=== PATIENT | male | born 1950 | race Two or more races ===

== ENCOUNTER 2019-10-01 10:08 | Observation (INO) | payer MEDICARE, OTHER ==
[2019-10-01] MEDS ORDERED: NORMAL SALINE 1000 ML 1,000 ML IV ONE ×2 (10:33→12:50)
--- NOTE | 2019-10-01 10:35 | ER Document Report ---
ED Medical Screen (RME) - General Chief Complaint: Abdominal Pain Stated Complaint: ABDOMINAL PAIN Time Seen by Provider: 10/01/19 10:29 - HPI Notes: 10/01/19 10:34 68-year-old male with a history of hypertension and arthritis presents to the ER via EMS for complaints of pain to his right lower quadrant with started at 1:00 in the morning, states pain comes and goes. Reports pain is sharp and shooting. Patient states that he was given pain medication in EMS on the way to the emergency room. Denies any nausea vomiting diarrhea, fever chills, chest pain or shortness of breath. Reports now he only has pain with palpation to his right lower quadrant. Denies any abdominal surgeries. Denies any melena. Denies any trauma I have greeted and performed a rapid initial assessment of this patient. A comprehensive ED assessment and evaluation of the patient, analysis of test results and completion of the medical decision making process will be conducted by additional ED providers. PHYSICAL EXAMINATION: GENERAL: Well-appearing, well-nourished and in no acute distress. CV: s1, s2 regular LUNGS: No respiratory distress abd: RLQ abd pain on palpation, no cva tenderness appreciated bilaterally - Related Data Allergies/Adverse Reactions: No Known Allergies Allergy (Verified 10/01/19 10:31) Physical Exam - Vital signs Vitals: Temp Pulse Resp BP Pulse Ox 98.0 F 91 16 108/87 H 95 10/01/19 10:13 10/01/19 10:13 10/01/19 10:13 10/01/19 10:13 10/01/19 10:13 Course - Vital Signs Vital signs: Temp Pulse Resp BP Pulse Ox 98.0 F 91 16 108/87 H 95 10/01/19 10:13 10/01/19 10:13 10/01/19 10:13 10/01/19 10:13 10/01/19 10:13
[2019-10-01 11:11] LABS: ABSOLUTE BASOPHILS # (AUTO) 0.1 10^3/uL (0.0-0.2); ABSOLUTE LYMPHOCYTES (AUTO) 1.1 10^3/uL (0.5-4.7); ABSOLUTE MONOCYTES (AUTO) 1.6 10^3/uL (0.1-1.4); ABSOLUTE NEUT (AUTO) 16.5 10^3/uL (1.7-8.2); BASOPHILS % (AUTO) 0.4 % (0-2); HEMATOCRIT 42.9 % (37.9-51.0); HEMOGLOBIN 14.8 g/dL (13.5-17.0); LYMPHOCYTES % (AUTO) 5.7 % (13-45); MEAN CORPUSCULAR HEMOGLOBIN 32.4 pg (27.0-33.4); MEAN CORPUSCULAR HGB CONC 34.5 g/dL (32.0-36.0); MEAN CORPUSCULAR VOLUME 94 fl (80-97); MONOCYTES % (AUTO) 8.2 % (3-13); PLATELET COUNT 296 10^3/uL (150-450); RED BLOOD COUNT 4.57 10^6/uL (4.35-5.55); RED CELL DISTRIBUTION WIDTH 13.7 % (11.5-14.0); SEGMENTED NEUTROPHILS % (AUTO) 85.7 % (42-78); TOTAL CELLS COUNTED % (AUTO) 100 %; WHITE BLOOD COUNT 19.3 10^3/uL (4.0-10.5)
[2019-10-01 11:25] LABS: APPEARANCE,URINE CLEAR; BILIRUBIN,URINE NEGATIVE (NEGATIVE); COLOR,URINE YELLOW; GLUCOSE, URINE NEGATIVE (NEGATIVE); KETONES,URINE NEGATIVE (NEGATIVE); LEUKOCYTE ESTERASE,URINE TRACE (NEGATIVE); NITRITE,URINE NEGATIVE (NEGATIVE); PROTEIN,URINE 30 mg/dL (NEGATIVE); URINE SPECIFIC GRAVITY 1.018; UROBILINOGEN,URINE NEGATIVE mg/dL (<2.0)
[2019-10-01 11:29] LABS: ALBUMIN 4.8 g/dL (3.5-5.0); ALKALINE PHOSPHATASE 57 U/L (38-126); ANION GAP 10 (5-19); ASPARTATE AMINO TRANSFERASE 22 U/L (17-59); BILIRUBIN,DIRECT 0.3 mg/dL (0.0-0.4); BILIRUBIN,TOTAL 0.6 mg/dL (0.2-1.3); BLOOD UREA NITROGEN 14 mg/dL (7-20); CALCIUM 9.6 mg/dL (8.4-10.2); CARBON DIOXIDE 27 mmol/L (22-30); CHLORIDE 101 mmol/L (98-107); GLUCOSE 134 mg/dL (75-110); POTASSIUM 4.3 mmol/L (3.6-5.0); TOTAL PROTEIN 8.2 g/dL (6.3-8.2)
--- NOTE | 2019-10-01 12:18 | ER Document Report ---
ED GI/ - General Chief Complaint: Abdominal Pain Stated Complaint: ABDOMINAL PAIN Time Seen by Provider: 10/01/19 10:29 Notes: CHIEF COMPLAINT: Right lower quadrant abdominal pain HPI: 68-year-old reasonably healthy male presenting for right lower quadrant abdominal pain that he woke up with this morning. Has not had nausea vomiting or fever. States the pain was fairly sharp, no penile or testicular pain. No dysuria or hematuria. Denies any surgical abdominal history ROS: See HPI - all other systems were reviewed and are otherwise negative Constitutional: no fever Eyes: no drainage, no blurred vision ENT: no runny nose, no sore throat Cardiovascular: no chest pain Resp: no SOB, no cough GI: no vomiting, no diarrhea, + abdominal pain : no dysuria Integumentary: no rash Allergy: no hives Musculoskeletal: no extremity pain or swelling Neurological: no numbness/tingling, no weakness MEDICATIONS: I agree with the patient medications as charted by the RN. ALLERGIES: I agree with the allergies as charted by the RN. PAST MEDICAL HISTORY/PAST SURGICAL HISTORY: Reviewed and agree as charted by RN. SOCIAL HISTORY: Reviewed and agree as charted by RN. FAMILY HISTORY: No significant familial comorbid conditions directly related to patient complaint EXAM: Reviewed vital signs as charted by RN. CONSTITUTIONAL: Alert and oriented and responds appropriately to questions. Well-appearing; well-nourished HEAD: Normocephalic; atraumatic EYES: PERRL; Conjunctivae clear, sclerae non-icteric ENT: normal nose; no rhinorrhea; moist mucous membranes; pharynx without lesions noted, no uvula edema or deviation, no tonsillar hypertrophy, phonation normal NECK: Supple without meningismus; non-tender; no cervical lymphadenopathy, no masses CARD: RRR; no murmurs, no clicks, no rubs, no gallops; symmetric distal pulses RESP: Normal chest excursion without splinting or tachypnea; breath sounds clear and equal bilaterally; no wheezes, no rhonchi, no rales, pulse oximetry 99% on room air not hypoxic ABD/GI: Normal bowel sounds; non-distended; soft, mild tenderness in the right lower quadrant on palpation, no rebound, no guarding; no palpable organomegaly or masses. BACK: The back appears normal and is non-tender to palpation, there is no CVA tenderness EXT: Normal ROM in all joints; non-tender to palpation; no cyanosis, no effusions, no edema SKIN: Normal color for age and race; warm; dry; good turgor; no acute lesions noted NEURO: Moves all extremities equally; Motor and sensory function intact PSYCH: The patient's mood and manner are appropriate. Grooming and personal hygiene are appropriate. MDM: 68-year-old male who woke up with right lower quadrant abdominal pain today. Differential would include kidney stone although he has no hematuria, appendicitis, diverticulitis, discussed with Dr. Mojica attending, patient shows a moderate leukocytosis of 19,000. Urine does not appear to show significant infection. Awaiting CT imaging, ordered via triage process - Related Data Allergies/Adverse Reactions: No Known Allergies Allergy (Verified 10/01/19 10:31) Home Medications: amlodipine, meloxicam Past Medical History - Social History Smoking Status: Never Smoker Frequency of alcohol use: None Drug Abuse: None Family History: Reviewed & Not Pertinent Physical Exam - Vital signs Vitals: Temp Pulse Resp BP Pulse Ox 98.0 F 91 16 108/87 H 95 10/01/19 10:13 10/01/19 10:13 10/01/19 10:13 10/01/19 10:13 10/01/19 10:13 Course - Re-evaluation Re-evalutation: 10/01/19 12:[address] Soni, Surgery. Case discussed, lab and CT imaging reviewed. Requests 2 g Rocephin IV, IV fluids, will admit - Vital Signs Vital signs: Temp Pulse Resp BP Pulse Ox 98.0 F 91 16 108/87 H 95 10/01/19 10:13 10/01/19 10:13 10/01/19 10:13 10/01/19 10:13 10/01/19 10:13 - Laboratory Result Diagrams: 10/01/19 10:50 10/01/19 10:50 Laboratory results interpreted by me: 10/01/19 10/01/19 10/01/19 10:50 10:50 10:50 WBC 19.3 H Lymph % (Auto) 5.7 L Absolute Neuts (auto) 16.5 H Absolute Monos (auto) 1.6 H Seg Neutrophils % 85.7 H Glucose 134 H Urine Protein 30 H Ur Leukocyte Esterase TRACE H Discharge - Discharge Clinical Impression: Acute appendicitis Qualifiers: Acute appendicitis type: with localized peritonitis Appendicitis gangrene presence: without gangrene Appendicitis perforation presence: without p erforation Appendicitis abscess presence: without abscess Qualified Code(s): K35.30 - Acute appendicitis with localized peritonitis, without perforation or gangrene Condition: Stable Disposition: ADMITTED INPATIENT Admitting Provider: Surgicalist - Dr. Soni Unit Admitted: OR
--- NOTE | 2019-10-01 12:44 | RADIOLOGY REPORT (SQ) ---
EXAM DESCRIPTION: CT ABD/PELVIS WITH IV ONLY IMAGES COMPLETED DATE/TIME: 10/01/2019 12:22 pm REASON FOR STUDY: RLQ abd pain at 1 am, intermittent, pain 4/5 COMPARISON: None. TECHNIQUE: CT scan of the abdomen and pelvis performed using helical scanning technique with dynamic intravenous contrast injection. No oral contrast. Images reviewed with lung, soft tissue, and bone windows. Reconstructed coronal and sagittal MPR images reviewed. Delayed images for evaluation of the urinary system also acquired. All images stored on PACS. All CT scanners at this facility use dose modulation, iterative reconstruction, and/or weight based d osing when appropriate to reduce radiation dose to as low as reasonably achievable (ALARA). [facility]: Dose Right [facility]: CareDose [facility]: Dose Right [facility]: Teradose 4D [facility]: [employer] CONTRAST TYPE AND DOSE: contrast/concentration: Isovue 350.00 mmol/ml; Total Contrast Delivered: 100 .0 ml; Total Saline Delivered: 36.7 ml RENAL FUNCTION: BUN 14 creatinine 0.74. RADIATION DOSE: CT Rad equipment meets quality standard of care and radiation dose reduction techniq ues were employed. CTDIvol: 8.6 - 11.7 mGy. DLP: 1223 mGy-cm.. LIMITATIONS: None. FINDINGS: LOWER CHEST: No significant findings. No nodules or infiltrates. LIVER: Normal size. No masses. No dilated ducts. SPLEEN: Normal size. No focal lesions. PANCREAS: No masses. No significant calcifications. No adjacent inflammation or peripancreatic fluid collections. Pancreatic duct not dilated. GALLBLADDER: No identified stones by CT criteria. No inflammatory changes to suggest cholecystitis. ADRENAL GLANDS: No significant masses or asymmetry. RIGHT KIDNEY AND URETER: No solid masses. No significant calcifications. No hydronephrosis or hyd roureter. LEFT KIDNEY AND URETER: No solid masses. No significant calcifications. No hydronephrosis or hydr oureter. AORTA AND VESSELS: No aneurysm. No dissection. Renal arteries, SMA, celiac without stenosis. RETROPERITONEUM: No retroperitoneal adenopathy, hemorrhage or masses. BOWEL AND PERITONEAL CAVITY: No masses or inflammatory changes. No free fluid or peritoneal masses. APPENDIX: Distended, measuring 11 mm. Blurring and inflammation in the periappendiceal soft tissues. No abnormal fluid collection or extraluminal gas. PELVIS: No mass. No free fluid. Normal bladder. ABDOMINAL WALL: No masses. No hernias. BONES: No significant or acute findings. OTHER: No other significant finding. IMPRESSION: 1. EARLY ACUTE APPENDICITIS. NO EVIDENCE OF ABSCESS OR PERFORATION. 2. NO OTHER SIGNIFICANT OR ACUTE FINDING IN THE ABDOMEN OR PELVIS ON CT SCAN WITH IV CONTRAST. TECHNICAL DOCUMENTATION: JOB ID: [id number] Quality ID # [id number]: Final reports with documentation of one or more dose reduction techniques (e.g., Au tomated exposure control, adjustment of the mA and/or kV according to patient size, use of iterative reconstruction technique) 2010 [email or web address]- All Rights Reserved Reading location - IP/workstation name: [facility]-
[2019-10-01] MEDS ORDERED: CEFTRIAXONE 2 GM/D5W RTU 2 GM/50 ML RTUPB IV ONE (12:51)
--- NOTE | 2019-10-01 13:44 | PDOC H&P ---
History of Present Illness Admission Date/PCP: 10/01/19 13:17 Patient complains of: Right lower quadrant pain for 12 hours History of Present Illness: DARIA NAJERA is a 68 year old male healthy, with a 12-hour history of right lower quadrant pain intense nausea. The patient presented to the emergency room with above symptoms and found to have an acute appendicitis on CAT scan without evidence of perforation. Social History Smoking Status: Never Smoker Family History Family History: Reviewed & Not Pertinent Parental Family History Reviewed: No Children Family History Reviewed: No Sibling(s) Family History Reviewed.: No Medication/Allergy Allergies/Adverse Reactions: No Known Allergies Allergy (Verified 10/01/19 10:31) Physical Exam Vital Signs: Temp Pulse Resp BP Pulse Ox 98.0 F 91 16 108/87 H 95 10/01/19 10:13 10/01/19 10:13 10/01/19 10:13 10/01/19 10:13 10/01/19 10:13 Intake & Output 09/30/19 10/01/19 10/02/19 06:59 06:59 06:59 Intake Total 1050 Balance 1050 Weight 98.4 kg General appearance: PRESENT: no acute distress, obese, well-developed Eye exam: PRESENT: EOMI Mouth exam: PRESENT: neck supple Respiratory exam: PRESENT: clear to auscultation miroslava Cardiovascular exam: PRESENT: RRR GI/Abdominal exam: PRESENT: soft, tenderness - Right lower quadrant Rectal exam: PRESENT: deferred Extremities exam: PRESENT: full ROM Musculoskeletal exam: PRESENT: full ROM Neurological exam: PRESENT: alert, altered, oriented to person Results Laboratory Results: 10/01/19 10:50 10/01/19 10:50 10/01/19 10/01/19 10/01/19 10:50 10:50 10:50 WBC 19.3 H RBC 4.57 Hgb 14.8 Hct 42.9 MCV 94 MCH 32.4 MCHC 34.5 RDW 13.7 Plt Count 296 Seg Neutrophils % 85.7 H Sodium 137.8 Potassium 4.3 Chloride 101 Carbon Dioxide 27 Anion Gap 10 BUN 14 Creatinine 0.74 Est GFR ( Amer) > 60 Glucose 134 H Calcium 9.6 Total Bilirubin 0.6 AST 22 Alkaline Phosphatase 57 Total Protein 8.2 Albumin 4.8 Lipase 37.4 Urine Color YELLOW Urine Appearance CLEAR Urine pH 7.0 Ur Specific [place] 1.018 Urine Protein 30 H Urine Glucose (UA) NEGATIVE Urine Ketones NEGATIVE Urine Blood NEGATIVE Urine Nitrite NEGATIVE Ur Leukocyte Esterase TRACE H Urine WBC (Auto) 2 Urine RBC (Auto) 3 Impressions: Abdomen/Pelvis CT 10/01/19 10:32 IMPRESSION: 1. EARLY ACUTE APPENDICITIS. NO EVIDENCE OF ABSCESS OR PERFORATION. 2. NO OTHER SIGNIFICANT OR ACUTE FINDING IN THE ABDOMEN OR PELVIS ON CT SCAN WITH IV CONTRAST. Assessment & Plan - Diagnosis (1) Acute appendicitis Qualifiers: Acute appendicitis type: with localized peritonitis Appendicitis gangrene presence: without gangrene Appendicitis perforation presence: without perforation Appendicitis abscess presence: without abscess Qualified Code(s): K35.30 - Acute appendicitis with localized peritonitis, without perforation or gangrene - Time Anticipated Discharge Disposition: Home, Self Care Anticipated Discharge Timeframe: within 48 hours - Plan Summary Plan Summary: Assessment: Right lower quadrant pain for 12 hours Leukocytosis 19,000 CT scan abdomen pelvis very significant for acute appendicitis without perforation History of hypertension Plan: Laparoscopic appendectomy possible open Procedure, risks, benefits, complications, including bowel injury, bleeding, infection, blood clots to his lungs, and been discussed with the patient, he understands all the above, his questions answered, he desires to proceed Preoperative EKG Rocephin 2 g IV fluids
[2019-10-01] MEDS ORDERED: FENTANYL CITRATE INJ/PF 100 MCG/2 ML AMPUL ONE ×2 (20:25→20:26)
[2019-10-01] MEDS ORDERED: MIDAZOLAM 2 MG/2 ML INJ ONE (20:26)
[2019-10-01] MEDS ORDERED: ONDANSETRON HCL INJ/PF 4 MG/2 ML SDV ONE (20:26)
[2019-10-01] MEDS ORDERED: PROPOFOL INJ 200 MG/20 ML VIAL IV ONE (20:26)
[2019-10-01] MEDS ORDERED: DEXAMETHASONE SOD PHOSPHATE INJ 4 MG/1 ML VIAL ONE (20:26)
[2019-10-01] MEDS ORDERED: BUPIVACAINE HCL 0.5%-EPI 1:200000 INJ/PF 30 ML VIAL ONE (21:16)
[2019-10-01] MEDS ORDERED: MEPERIDINE HCL/PF INJ 25 MG/1 ML DISP.SYRIN IV PRN (21:29)
[2019-10-01] MEDS ORDERED: MORPHINE SULFATE 10 MG/ML INJ IV PRN (21:29)
[2019-10-01] MEDS ORDERED: PROMETHAZINE HCL INJ 25 MG/1 ML VIAL IV PRN (21:29)
[2019-10-01] MEDS ORDERED: DIPHENHYDRAMINE HCL 50 MG/ML VIAL IV PRN (21:29)
[2019-10-01] MEDS ORDERED: FENTANYL CITRATE INJ/PF 100 MCG/2 ML AMPUL IV PRN ×3 (21:29)
--- NOTE | 2019-10-01 22:44 | Operative Report ---
Operative Report DATE OF SURGERY: 10/01/19 PREOPERATIVE DIAGNOSIS: Acute appendicitis POSTOPERATIVE DIAGNOSIS: Same OPERATION: Laparoscopic appendectomy SURGEON: SAMMY HAMMONDS ANESTHESIA: GA - +20 mL of half percent Marcaine with epinephrine TISSUE REMOVED OR ALTERED: Appendix COMPLICATIONS: None ESTIMATED BLOOD LOSS: Negligible INTRAOPERATIVE FINDINGS: Acutely inflamed appendix PROCEDURE: The procedure was done in the operating room. The patient was placed in a supine position, general anesthesia induced by endotracheal intubation, the abdomen was prepped and draped in usual fashion. An incision was made just above the umbilicus with a #15 blade, the skin was tented with towel clips and a 5 mm port with Optiview adapter and scope were inserted through the abdominal wall into the peritoneal cavity. After they CO2 pneumoperitoneum was obtained, under direct visualization a 5 mm report was inserted in the right lateral quadrant of the abdomen following skin incision. The scope was removed from the umbilical port and inserted into the right side port. The 5 mm umbilical port was removed and replaced with a 12 mm port, while the 5 mm port was inserted in left lower quadrant of the abdomen following skin incision. The patient was placed in steep Trendelenburg position with the right side elevated. The appendix was then identified by tracing the anterior tenia of the cecum, the appendix was then found, elevated, and stretched. The mesentery of the appendix was divided with the LigaSure. The appendix was found to be [non-perforated]. The appendix was stapled at the base with an Endo SALMA stapler, extracted from the peritoneal cavity with an Endobag through the umbilical port. The pneumoperitoneum was then re-established, the stapled line was examined and found to be intact. The right lower quadrant was then irrigated with normal saline until clear. The umbilical fascial defect was closed with a [id number] 0 Vicryl suture, placed with a fascia closure device under direct visualization and left untied. All instruments were removed, the pneum operitoneum was released, and all ports were removed. The umbilical fascial defect was closed with the previously placed [id number] 0 Vicryl suture, all skin incisions were closed with a 4-0 PDS running subcuticular suture, and covered with Dermabond. The patient tolerated the procedure well, was extubated, and transferred to the recovery room in satisfactory conditions.
[2019-10-01] MEDS ORDERED: NORMAL SALINE 1000 ML 1,000 ML IV PRN (22:48)
[2019-10-01] MEDS ORDERED: ONDANSETRON HCL INJ/PF 4 MG/2 ML SDV IV PRN (22:48)
[2019-10-01] MEDS ORDERED: TRAMADOL HCL 50 MG TABLET PO PRN (22:53)
[2019-10-01] MEDS ORDERED: ACETAMINOPHEN 1,000 MG/100 ML RTUPB IV ONE (23:05)
[2019-10-01] MEDS: FAMOTIDINE INJ/PF 20 MG/2 ML SDV IV SCH (23:54)
[2019-10-01] MEDS: KETOROLAC TROMETHAMINE INJ/PF 30 MG/1 ML SDV IV SCH (23:54)
[2019-10-01] MEDS: DOCUSATE SODIUM 100 MG/10 ML UDC PO SCH (23:55)
[2019-10-02 05:45] LABS: HEMATOCRIT 38.9 % (37.9-51.0); HEMOGLOBIN 13.3 g/dL (13.5-17.0); MEAN CORPUSCULAR HEMOGLOBIN 32.2 pg (27.0-33.4); MEAN CORPUSCULAR HGB CONC 34.1 g/dL (32.0-36.0); MEAN CORPUSCULAR VOLUME 94 fl (80-97); PLATELET COUNT 242 10^3/uL (150-450); RED BLOOD COUNT 4.12 10^6/uL (4.35-5.55); RED CELL DISTRIBUTION WIDTH 13.7 % (11.5-14.0); WHITE BLOOD COUNT 16.8 10^3/uL (4.0-10.5)
[2019-10-02 06:22] LABS: ABSOLUTE LYMPHOCYTES# (MANUAL) 0.7 10^3/uL (0.5-4.7); ABSOLUTE MONOCYTES # (MANUAL) 0.7 10^3/uL (0.1-1.4); BASOPHILS % (MANUAL) 0 % (0-2); EOSINOPHILS % (MANUAL) 0 % (0-6); LYMPHOCYTES % (MANUAL) 3 % (13-45); MONOCYTES % (MANUAL) 4 % (3-13); SEGMENTED NEUTROPHILS % (MAN) 92 % (42-78); TOTAL CELLS COUNTED 100
[2019-10-02 06:23] LABS: PLATELET COMMENT ADEQUATE; RBC MORPHOLOGY COMMENT NORMO-CYTIC/CHROMIC
[2019-10-02] MEDS: KETOROLAC TROMETHAMINE INJ/PF 30 MG/1 ML SDV IV SCH (06:53)
[2019-10-02 07:44] VITALS: BP 120/65
--- NOTE | 2019-10-02 09:28 | PDOC DISCHARGE SUMMARY ---
General - Admit/Disc Date/PCP Admission Date/Primary Care Provider: 10/01/19 13:17 Discharge Date: 10/02/19 - Discharge Diagnosis Final Diagnosis: Acute appendicitis, nonperforated - Assessment Summary: This is a 68-year-old male with nonperforated acute appendicitis. The patient underwent laparoscopic appendectomy yesterday. He is doing well today. He is ambulating, tolerating a diet, he is afebrile, and he is requesting discharge home. His incisions are clean, dry, and intact. I believe he has reached maximal hospital benefit, and discharge. - Additional Information Resuscitation Status: Full Code Discharge Diet: As Tolerated Discharge Activity: Balance Activity w/Rest, No Lifting Over 10 Pounds, No Lifting/Push/Pulling Prescriptions: Hydrocodone/Acetaminophen [Irmo 10-325 mg Tablet] 1 tab PO Q6HP PRN #10 tablet PRN Reason: For Pain Home Medications: Amlodipine Besylate [Norvasc 5 mg Tablet] 5 mg PO DAILY 10/01/19 Meloxicam [Qmiiz Odt] 15 mg PO DAILYP PRN 10/01/19 Hydrocodone/Acetaminophen [Irmo 10-325 mg Tablet] 1 tab PO Q6HP PRN #10 tablet 10/02/19 Additional Information: Discharge home. Diet as tolerated. Activity: no lifting greater than 10 pounds x 2 weeks. Follow-up with [place] [facility] in 7 to 10 days. OK to shower starting tomorrow. No tub baths or swimming pools x2 weeks. History of Present Illiness History of Present Illness: DARIA NAJERA is a 68 year old male Physical Exam Vital Signs: Temp Pulse Resp BP Pulse Ox 97.8 F 93 17 120/65 95 10/02/19 07:54 10/02/19 07:08 10/02/19 07:08 10/02/19 07:08 10/02/19 07:08 Intake & Output 10/01/19 10/02/19 10/03/19 06:59 06:59 06:59 Intake Total 2600 Output Total 10 Balance 2590 Weight 85.6 kg Results Laboratory Results: WBC 16.8 10^3/uL (4.0-10.5) H 10/02/19 04:53 RBC 4.12 10^6/uL (4.35-5.55) L 10/02/19 04:53 Hgb 13.3 g/dL (13.5-17.0) L 10/02/19 04:53 Hct 38.9 % (37.9-51.0) 10/02/19 04:53 MCV 94 fl (80-97) 10/02/19 04:53 MCH 32.2 pg (27.0-33.4) 10/02/19 04:53 MCHC 34.1 g/dL (32.0-36.0) 10/02/19 04:53 RDW 13.7 % (11.5-14.0) 10/02/19 04:53 Plt Count 242 10^3/uL (150-450) 10/02/19 04:53 Lymph % (Auto) Not Reportable 10/02/19 04:53 [place] % (Auto) Not Reportable 10/02/19 04:53 Eos % (Auto) Not Reportable 10/02/19 04:53 Baso % (Auto) Not Reportable 10/02/19 04:53 Absolute Neuts (auto) Not Reportable 10/02/19 04:53 Absolute Lymphs (auto) Not Reportable 10/02/19 04:53 Absolute Monos (auto) Not Reportable 10/02/19 04:53 Absolute Eos (auto) Not Reportable 10/02/19 04:53 Absolute Basos (auto) Not Reportable 10/02/19 04:53 Total Counted 100 10/02/19 04:53 Seg Neutrophils % Not Reportable 10/02/19 04:53 Seg Neuts % (Manual) 92 % (42-78) H 10/02/19 04:53 Lymphocytes % (Manual) 3 % (13-45) L 10/02/19 04:53 Atypical Lymphs % 1 % (0) 10/02/19 04:53 Monocytes % (Manual) 4 % (3-13) 10/02/19 04:53 Eosinophils % (Manual) 0 % (0-6) 10/02/19 04:53 Basophils % (Manual) 0 % (0-2) 10/02/19 04:53 Abs Neuts (Manual) 15.5 10^3/uL (1.7-8.2) H 10/02/19 04:53 Abs Lymphs (Manual) 0.7 10^3/uL (0.5-4.7) 10/02/19 04:53 Abs Monocytes (Manual) 0.7 10^3/uL (0.1-1.4) 10/02/19 04:53 Absolute Eos (Manual) 0.0 10^3/uL (0.0-0.6) 10/02/19 04:53 Abs Basophils (Manual) 0.0 10^3/uL (0.0-0.2) 10/02/19 04:53 Platelet Comment ADEQUATE 10/02/19 04:53 RBC Morph Comment NORMO-CYTIC/CHROMIC 10/02/19 04:53 Sodium 137.8 mmol/L (137-145) 10/01/19 10:50 Potassium 4.3 mmol/L (3.6-5.0) 10/01/19 10:50 Chloride 101 mmol/L (98-107) 10/01/19 10:50 Carbon Dioxide 27 mmol/L (22-30) 10/01/19 10:50 Anion Gap 10 (5-19) 10/01/19 10:50 BUN 14 mg/dL (7-20) 10/01/19 10:50 Creatinine 0.74 mg/dL (0.52-1.25) 10/01/19 10:50 Est GFR ( Amer) > 60 (>60) 10/01/19 10:50 Est GFR (MDRD) Non-Af > 60 (>60) 10/01/19 10:50 Glucose 134 mg/dL (75-110) H 10/01/19 10:50 Calcium 9.6 mg/dL (8.4-10.2) 10/01/19 10:50 Total Bilirubin 0.6 mg/dL (0.2-1.3) 10/01/19 10:50 Direct Bilirubin 0.3 mg/dL (0.0-0.4) 10/01/19 10:50 Neonat Total Bilirubin Not Reportable 10/01/19 10:50 Neonat Direct Bilirubin Not Reportable 10/01/19 10:50 Neonat Indirect Bili Not Reportable 10/01/19 10:50 AST 22 U/L (17-59) 10/01/19 10:50 ALT 21 U/L (<50) 10/01/19 10:50 Alkaline Phosphatase 57 U/L (38-126) 10/01/19 10:50 Total Protein 8.2 g/dL (6.3-8.2) 10/01/19 10:50 Albumin 4.8 g/dL (3.5-5.0) 10/01/19 10:50 Lipase 37.4 U/L (23-300) 10/01/19 10:50 Urine Color YELLOW 10/01/19 10:50 Urine Appearance CLEAR 10/01/19 10:50 Urine pH 7.0 (5.0-9.0) 10/01/19 10:50 Ur Specific [place] 1.018 10/01/19 10:50 Urine Protein 30 mg/dL (NEGATIVE) H 10/01/19 10:50 Urine Glucose (UA) NEGATIVE mg/dL (NEGATIVE) 10/01/19 10:50 Urine Ketones NEGATIVE mg/dL (NEGATIVE) 10/01/19 10:50 Urine Blood NEGATIVE (NEGATIVE) 10/01/19 10:50 Urine Nitrite NEGATIVE (NEGATIVE) 10/01/19 10:50 Urine Bilirubin NEGATIVE (NEGATIVE) 10/01/19 10:50 Urine Urobilinogen NEGATIVE mg/dL (<2.0) 10/01/19 10:50 Ur Leukocyte Esterase TRACE (NEGATIVE) H 10/01/19 10:50 Urine WBC (Auto) 2 /HPF 10/01/19 10:50 Urine RBC (Auto) 3 /HPF 10/01/19 10:50 Squamous Epi Cells Auto <1 /HPF 10/01/19 10:50 Urine Mucus (Auto) MOD /LPF 10/01/19 10:50 Urine Ascorbic Acid NEGATIVE (NEGATIVE) 10/01/19 10:50 Impressions: Abdomen/Pelvis CT 10/01/19 10:32 IMPRESSION: 1. EARLY ACUTE APPENDICITIS. NO EVIDENCE OF ABSCESS OR PERFORATION. 2. NO OTHER SIGNIFICANT OR ACUTE FINDING IN THE ABDOMEN OR PELVIS ON CT SCAN WITH IV CONTRAST.
[2019-10-02] MEDS ORDERED: ENOXAPARIN SODIUM INJ 40 MG/0.4 ML DISP.SYRIN SUBCUT SCH (10:00)
[2019-10-02] MEDS: DOCUSATE SODIUM 100 MG/10 ML UDC PO SCH (10:04)
[2019-10-02] MEDS: FAMOTIDINE INJ/PF 20 MG/2 ML SDV IV SCH (10:05)
--- NOTE | 2019-10-02 10:24 | EKG REPORT ---
SEVERITY:- NORMAL ECG - SINUS RHYTHM : Confirmed by: Shiloh Stern MD 02-Oct-2019 10:23:58
== END 2019-10-02 10:30 | disposition home or self-care (01) ==
LOC: ER 10:08 → EH 13:17 → INTOOBSV 13:17 → 4N 16:19
PROVIDERS: ADMIT Surgery; ATTEND Surgery
DX: K35.30 Acute appendicitis with localized peritonitis, without perforation or gangrene (principal); I10 Essential (primary) hypertension; E66.9 Obesity, unspecified; M19.90 Unspecified osteoarthritis, unspecified site; Z79.899 Other long term (current) drug therapy; Z79.1 Long term (current) use of non-steroidal anti-inflammatories (NSAID); Z87.891 Personal history of nicotine dependence
CPT/HCPCS: 44970; 99285; 96360; 36415 ×2; 83690; 85025 ×2; 80053; 81001; 88304 ×2; 74177; 93005; 93010; 99140; 00840; G0378; J2250; J3490; J1100; A9270 ×3; J3010; J1885 ×2; J2405; J7030; J2704; S0028 ×2; J0131; J0696; 840